=== PATIENT | male | born 1965 | race Caucasian/White ===

== ENCOUNTER 2017-10-13 00:36 | Emergency (ER) | payer MEDICAID, OTHER ==
--- NOTE | 2017-10-13 00:42 | ED Physician Documentation ---
PD HPI OPHTHO - Stated complaint Stated Complaint: LT EYE PAIN - History obtained from History obtained from: Patient - History of Present Illness Timing - onset: How many days ago (2) Timing - details: Gradual onset, Still present Location: Left Quality / character: Throbbing Associated symptoms: Redness, FB sensation Contributing factors: FB. No: Wears glasses, Wears contacts Similar symptoms before: Has not had sx before Recently seen: Not recently seen - Additional information Additional information: Patient is a 52 year old male with no significant past medical history who is presenting to the emergency department for left eye pain and foreign body sensation. Patient states that he was working on his car the day before and this morning he woke up with pain in his eye. he tried to get the foreign body out with a q-tip but he and a friend were both unsuccessful. Review of Systems Constitutional: denies: Fever, Chills Eyes: reports: Photophobia, Discharge, Irritation Ears: reports: Reviewed and negative Nose: reports: Reviewed and negative Throat: reports: Reviewed and negative Cardiac: reports: Reviewed and negative Respiratory: reports: Reviewed and negative GI: reports: Reviewed and negative : reports: Reviewed and negative Skin: reports: Reviewed and negative Musculoskeletal: reports: Reviewed and negative Neurologic: denies: Headache Psychiatric: reports: Reviewed and negative PD PAST MEDICAL HISTORY - Allergies Allergies/Adverse Reactions: Allergies Allergy/AdvReac Type Severity Reaction Status Date / Time No Known Drug Allergies Allergy Verified 10/13/17 00:49 PD ED PE NORMAL - Vitals Vital signs reviewed: Yes - General General: Alert and oriented X 3 - HEENT HEENT: Atraumatic - Cardiac Cardiac: RRR - Respiratory Respiratory: No respiratory distress - Abdomen Abdomen: Non distended - Derm Derm: Normal color, No rash - Extremities Extremities: No deformity - Neuro Neuro: Alert and oriented X 3, No motor deficit, No sensory deficit, Normal speech Eye Opening: Spontaneous Motor: Obeys Commands Verbal: Oriented GCS Score: 15 PD ED PE EXPANDED - General General: Alert, In Pain - Eyes Eyes: Visual acuity - see nn, Corneal FB (with rust ring at approximately 12 oclock), Corneal abrasion, Fluorescein uptake Results - Vitals Vitals: Vital Signs - 24 hr 10/13/17 10/13/17 10/13/17 00:46 01:01 01:36 Temperature 36.5 C 36.4 C L Heart Rate 103 H 92 Respiratory 18 17 12 Rate Blood Pressure 164/94 H 132/94 H O2 Saturation 98 97 10/13/17 01:40 Temperature Heart Rate Respiratory 17 Rate Blood Pressure O2 Saturation Oxygen O2 Source Room air Procedures - FB removal FB location: Other (eye) FB removal preparation: Local anesthesia-specify (proparacaine) Removal method: Other (27 g needle) FB removal aftercare: Patient tolerated well, Partially removed PD MEDICAL DECISION MAKING - ED course Complexity details: reviewed old records, re-evaluated patient, considered differential, d/w patient ED course: Patient was seen and examined at bedside. Patient was treated with proparacaine. Patient's fb was partially removed but there was some remnant rust ring. Patient was treated with polytrim drops and instructed on the importance of close follow up. Patient understood and was stable for discharge with outpatient follow up. Departure - Departure Disposition: 01 Home, Self Care Clinical Impression: Corneal rust ring of left eye Condition: Good Instructions: ED Foreign Body Cornea W Rust Ring Follow-Up: Dmitriy Mae MD [Primary Care Provider] - Comments: Your symptoms are being caused by a rust ring and foreign body. You will need to take the eye drops every 6 hours. It is important that you follow up with an eye doctor in the next two days as you will need the rest of the rust ring removed as it can lead to residential damage and scarring. Discharge Date/Time: 10/13/17 01:41
[2017-10-13] MEDS ORDERED: PROPARACAINE 0.5% OPHTH DROPS 15 ML EACHEYE STA (00:46)
[2017-10-13] MEDS ORDERED: POLYMYXIN B/TRIMETH OPHTH DROPS LEFTEYE STA (01:24)
[2017-10-13 01:37] VITALS: BP 132/94
== END 2017-10-13 01:41 | disposition home or self-care (01) ==
LOC: ED 00:36
DX: T15.02XA Foreign body in cornea, left eye, initial encounter (principal); X58.XXXA Exposure to other specified factors, initial encounter
CPT/HCPCS: 65220; 99282; 99283; A9270; J3490

== ENCOUNTER 2022-08-24 23:14 | Emergency (ER) | payer MEDICAID, OTHER ==
[2022-08-24 23:25] VITALS: BP 146/96
--- NOTE | 2022-08-24 23:30 | ED Physician Documentation ---
PD HPI HEENT - Stated complaint Stated Complaint: ABSCESS TOOTH - Chief complaint Chief Complaint: Wound - History obtained from History obtained from: Patient - History of Present Illness Timing - onset: How many days ago (Several days of increasing pain in the left upper tooth and gum and now redness and swelling in the left cheek and face. No pain in the orbital area.) Timing - duration: Days Timing - details: Gradual onset, Still present Location: Tooth (with extension to left cheek with redness and swelling.) Improves: No: Medication (iburpfoen at home) Associated symptoms: No: Fever, Congestion Similar symptoms before: Diagnosis (Poor dentition with prior dental infections. He has not been able to get to a dentist because of cost and he does not have dental insurance. Asks for referral to dental providers such as the [facility] dental clinic.) Review of Systems Constitutional: denies: Fever, Chills Eyes: denies: Photophobia Throat: reports: Dental pain / toothache. denies: Sore throat GI: denies: Nausea, Vomiting Neurologic: denies: Altered mental status, Headache PD PAST MEDICAL HISTORY - Past Medical History Cardiovascular: None Respiratory: None Endocrine/Autoimmune: None GI: None : None HEENT: None Psych: None Musculoskeletal: None Derm: None - Past Surgical History Past Surgical History: Yes General: Other Ortho: Other - Present Medications Home Medications: Ambulatory Orders Medication Instructions Recorded Confirmed HYDROcod/ACETAM 5/325 [Ayden 5/325] 1 ea PO Q6H PRN #18 tablet 08/24/22 Ibuprofen [Motrin] 600 mg PO TID PRN #20 tab 08/24/22 clindamycin HCL [Clindamycin HCl] 300 mg PO TID 7 Days #20 cap 08/24/22 - Allergies Allergies/Adverse Reactions: Allergies Allergy/AdvReac Type Severity Reaction Status Date / Time No Known Drug Allergies Allergy Verified 08/24/22 23:25 - Social History Does the pt smoke?: No Smoking Status: Never smoker Does the pt drink ETOH?: Yes Does the pt have substance abuse?: No - Immunizations Immunizations are current?: Yes - POLST Patient has POLST: No PD ED PE NORMAL - Vitals Vital signs reviewed: Yes - General General: Alert and oriented X 3, Well developed/nourished - HEENT HEENT: Pharynx benign (no swelling posteriorly. ). No: Dentition benign (Significant diffuse decay of teeth. The left upper premolar tooth 13 or 12 shows local gingival redness and swelling without fluctuance. The corresponding buccal mucosa shows some redness and swelling but no fluctuance. No tenderness or swelling of the parotid gland.) - Neck Neck: Supple, no meningeal sign, No adenopathy - Cardiac Cardiac: RRR, No murmur - Respiratory Respiratory: Clear bilaterally - Derm Derm: Other (The left cheek shows redness warmth and swelling without focal fl uctuance. It does not extend to the periorbital area.) Results - Vitals Vitals: Vital Signs - 24 hr 08/24/22 23:20 Temperature 36.2 C L Heart Rate 92 Respiratory 19 Rate Blood Pressure 146/96 H O2 Saturation 97 Oxygen O2 Source Room air PD Medical Decision Making - ED course Complexity details: considered differential (Dental infection with extension to the facial cellulitis. No drainable abscess palpable. Will treat with antibiotics and pain medicine.), d/w patient Departure - Departure Disposition: 01 Home, Self Care Clinical Impression: Dental abscess, Facial cellulitis Condition: Stable Record reviewed to determine appropriate education?: Yes Instructions: ED Dental Abscess Facial Cellulitis Follow-Up: Dmitriy Mae MD [Primary Care Provider] - Andres Banda DDS [Provider Admit Priv/Credential] - SENAIT AMADOR [Physician No Access] - Prescriptions: clindamycin HCL [Clindamycin HCl] 300 mg PO TID 7 Days #20 cap Ibuprofen [Motrin] 600 mg PO TID PRN #20 tab PRN Reason: Pain HYDROcod/ACETAM 5/325 [Ayden 5/325] 1 ea PO Q6H PRN #18 tablet PRN Reason: Pain Comments: Take clindamycin 3 times daily for the infection. Warm moist towels to the area to help improve blood flow and fight off the infection. Continue with some ibuprofen 600 mg 3 times daily to help with pain and inflammation as well. I sent prescriptions to [facility] pharmacy. To that add Tylenol every 4-6 hours if needed for pain or hydrocodone/acetaminophen if needed for worse pain. Follow-up with dental clinic or oral surgeon for more definitive care of the teeth at available appointment times. These places typically have a long waiting list. Possibilities are [facility] in [place], , or the dental clinic at [phone] to make an appointment (I clicked on the name of one of the dentists just to provide the phone number but I would not expect you to get an appointment with that particular provider.). I also did listed the name of one of the oral surgeons in [place]. It is probably unlikely he takes your insurance but you could give a call to see. This is Dr. Andres Banda. I am prescribing a short course of narcotic pain medication for you. These are potentially dangerous and addictive medications that should be used carefully. These medications may constipate you. Take an shpa-adg-ddaimsm stool softener such as docusate twice daily with plenty of water while taking these medications. If you go 24 hours without a bowel movement, take [id number]-[id number] MiraLAX, per package instructions. Do not drink or drive while taking these medications. If you received narcotic or sedating medications while in the emergency department do not drive for 24 hours. Store this medication in a safe, secure place and out of reach of children. It is a violation of federal law to give or sell this medication to another person or to use in a manner other than prescribed. The ED will not refill narcotic prescriptions, including prescriptions lost or stolen. You can dispose of unwanted medications at the [facility]'s office or at several pharmacies such as [facility]. Discharge Date/Time: 08/25/22 00:01
[2022-08-24] MEDS ORDERED: HYDROcod/ACETAM 5/325 MG TABLET PO STA (23:40)
[2022-08-24] MEDS ORDERED: ACETAMINOPHEN 325 MG TABLET PO STA (23:40)
[2022-08-24] MEDS ORDERED: HYDROcod/ACET 5/325 Prepack 4 PO STA (23:40)
[2022-08-24] MEDS ORDERED: CLINDAMYCIN 150 MG CAPSULE PO STA (23:40)
--- NOTE | 2022-08-25 14:25 | ED Physician Documentation ---
ED Addendum - Addendum Addendum: 08/25/22 14:25 The health dip unit operator asked me to change his prescriptions from [facility] to [email or web address].
== END 2022-08-25 00:01 | disposition home or self-care (01) ==
LOC: ED 23:14
DX: K04.7 Periapical abscess without sinus (principal); K12.2 Cellulitis and abscess of mouth
CPT/HCPCS: 99282; 99283; A9270

== ENCOUNTER 2022-11-30 19:54 | Emergency (ER) | payer MEDICAID ==
[2022-11-30] MEDS ORDERED: NAPROXEN 250 MG TABLET PO STA (20:25)
[2022-11-30] MEDS ORDERED: HYDROcod/ACETAM 5/325 MG TABLET PO STA (20:25)
--- NOTE | 2022-11-30 20:27 | ED Physician Documentation ---
PD HPI LOWER EXT INJURY - Stated complaint Stated Complaint: RT KNEE INJ - Chief complaint Chief Complaint: Ext Problem - History obtained from History obtained from: Patient - Additional information Additional information: 6 months ago he was walking in a field and stepped in impression and injured his right knee. He felt a pop. Says he was seen at [facility] with reportedly negative x-rays. He has had on and off pain ever since which was severe and blinding last night while kneeling on the ground and he could not sleep. Pain is of the medial anterior right knee. Hurts to walk and bear weight. Ibuprofen is modestly helpful. PD PAST MEDICAL HISTORY - Past Medical History Past Medical History: Yes Cardiovascular: None Respiratory: None Neuro: None Endocrine/Autoimmune: None GI: None : None HEENT: None Psych: None Musculoskeletal: None Derm: None - Past Surgical History Past Surgical History: Yes General: Other Ortho: Other - Present Medications Home Medications: Ambulatory Orders Medication Instructions Recorded Confirmed HYDROcod/ACETAM 5/325 [[place] 5/325] 1 - 2 tab PO Q6H PRN #15 tablet 11/30/22 - Allergies Allergies/Adverse Reactions: Allergies Allergy/AdvReac Type Severity Reaction Status Date / Time No Known Drug Allergies Allergy Verified 11/30/22 20:12 - Social History Does the pt smoke?: No Smoking Status: Never smoker Does the pt drink ETOH?: Yes Does the pt have substance abuse?: No - Immunizations Immunizations are current?: Yes - POLST Patient has POLST: No PD ED PE NORMAL - Vitals Vital signs reviewed: Yes - General General: Alert and oriented X 3, No acute distress - Extremities Extremities: Other (Moderate effusion of the right knee, tenderness along the medial joint line with pain with grind testing but ligamentous testing is intact.) - Neuro Neuro: Alert and oriented X 3, Normal speech - Psych Psych: Normal mood, Normal affect Results - Vitals Vitals: Vital Signs - 24 hr 11/30/22 20:04 Temperature 36.6 C Heart Rate 93 Respiratory 17 Rate Blood Pressure 126/88 H O2 Saturation 98 Oxygen O2 Source Room air - Rads (name of study) Three-view x-ray of the right knee is done and unremarkable. Relevant Findings:: Final report received, EMP independent interpretation of test PD Medical Decision Making - ED course ED course: 57-year-old gentleman with likely internal derangement of the right knee with effusion on exam. Likely meniscal injury based on exam. He is placed in knee immobilizer and orthopedic follow-up was recommended. Departure - Departure Disposition: 01 Home, Self Care Clinical Impression: Internal derangement of right knee Condition: Stable Record reviewed to determine appropriate education?: Yes Instructions: ED Meniscal Injury Knee Poss Follow-Up: [facility] [Provider Group] Prescriptions: HYDROcod/ACETAM 5/325 [[place] 5/325] 1 - 2 tab PO Q6H PRN #15 tablet PRN Reason: Pain Comments: I sent your prescription electronically to the [facility] [place]. You should follow-up with the orthopedist, call their office tomorrow for further evaluation and treatment. Return for new or worsening symptoms. I am prescribing a short course of narcotic pain medication for you. These are potentially dangerous and addictive medications that should be used carefully. These medications may constipate you. Take an wxye-upg-sbphlum stool softener (docusate) twice daily with plenty of water while taking these medications. If you go 24 hours without a bowel movement, take uphb-yzr-[id number] miralax, per package instructions. Do not drink or drive while taking these medications. If you received narcotic or sedating medications while in the emergency department, do not drive for 24 hours. Store this medication in a safe, secure place and out of reach of children. It is a violation of federal law to give or sell this medication to another person or to use in a manner other than prescribed. The ED will not refill narcotic prescriptions, including prescriptions lost or stolen. To dispose of unwanted medications: 1. [facility] at [address] in [place] has a medication drop box. They accept prescription medications (in pill form) Sunday through Sunday 9:00 a.m. to 5:00 p.m. 2. The [facility] [employer] accepts prescription medications (in pill form only) for disposal year round. Call for more information. 3. Contact the [facility] for the next [facility] sponsored prescription drug collection event. , [phone], or [phone]; Note that many narcotic pain relievers also contain Tylenol/acetaminophen. Please ensure that your total dose of acetaminophen from all sources does not exceed 3 g (3000 mg) per day.
--- NOTE | 2022-11-30 20:54 | XRAY Report ---
PROCEDURE: Knee 3 View RT INDICATIONS: PAIN/TENDERNESS/SWELLING R KNEE TECHNIQUE: 3 views of the right knee(s) were acquired. COMPARISON: None. FINDINGS: Bones: No displaced fracture or dislocation. Soft tissues: No suspicious soft tissue calcifications. No significant effusion. There are vascular c alcifications. IMPRESSION: No acute radiographic abnormality. If there is high concern for further derangement, consider MRI carlos luation. Reviewed by: Pierre Upton MD on 11/30/2022 8:53 PM PDT Approved by: Pierre Upton MD on 11/30/2022 8:53 PM PDT Station ID: [id number]
[2022-11-30 21:50] VITALS: BP 136/85
== END 2022-11-30 21:50 | disposition home or self-care (01) ==
LOC: ED 19:54
DX: M23.91 Unspecified internal derangement of right knee (principal)
CPT/HCPCS: 73562; 99283; 99284; A9270

== ENCOUNTER 2022-12-26 17:13 | Outpatient (CLI) | payer MEDICAID ==
--- NOTE | 2022-12-26 19:53 | XRAY Report ---
PROCEDURE: Knee 3 View RT INDICATIONS: RIGHT KNEE PAIN TECHNIQUE: 3 views of the right knee(s) were acquired. COMPARISON: None. FINDINGS: Bones: No fractures or dislocations. No suspicious bony lesions. Soft tissues: Small knee joint effusion. No suspicious soft tissue calcifications or masses. IMPRESSION: No significant DJD. If clinically indicated MRI could be considered for further evaluation. Reviewed by: Raj Sena MD on 12/26/2022 7:51 PM PDT Approved by: Raj Sena MD on 12/26/2022 7:51 PM PDT Station ID: [id number]
== END 2022-12-26 17:14 | disposition home or self-care (01) ==
LOC: DI.WOS 17:13
PROVIDERS: ATTEND Physician Assistant Surgical
DX: M25.561 Pain in right knee (principal)

== ENCOUNTER 2023-07-22 23:24 | Emergency (ER) | payer MEDICAID ==
[2023-07-22] MEDS ORDERED: ONDANSETRON 4 MG/2 ML VIAL IVP STA (23:39)
[2023-07-22] MEDS ORDERED: MORPHINE 2 MG/ML CARPUJECT IVP STA (23:39)
--- NOTE | 2023-07-22 23:41 | ED Physician Documentation ---
PD HPI MAJOR TRAUMA - Stated complaint Stated Complaint: FELL/L RIB PX - Chief complaint Chief Complaint: Trauma Ch/Bk - History obtained from History obtained from: Patient - Additional information Additional information: 58-year-old male with no reported past medical history presents by private vehicle for left chest and abdominal pain that began after a fall just prior to arrival. Patient was working 10 feet up on some pallets when he slipped and fell, landing on his left side. He does deny hitting his head or loss of consciousness, denies use of blood thinners. He reports left chest wall and left abdominal pain that is making it difficult for him to breathe. He reports "dislodging his liver" in the past and he is concerned that his liver may be involved Review of Systems Constitutional: denies: Fever, Chills Ears: denies: Loss of hearing, Ear pain, Drainage/discharge Cardiac: reports: Chest pain / pressure. denies: Palpitations, Calf pain Respiratory: reports: Dyspnea. denies: Cough, Wheezing GI: reports: Abdominal Pain. denies: Nausea, Vomiting, Constipation, Diarrhea : denies: Dysuria, Frequency, Hesitancy Musculoskeletal: denies: Neck pain, Back pain Neurologic: denies: Generalized weakness, Focal weakness, Numbness, Syncope PD PAST MEDICAL HISTORY - Past Medical History Past Medical History: No Cardiovascular: None Respiratory: None Neuro: None Endocrine/Autoimmune: None GI: None : None HEENT: None Psych: None Musculoskeletal: None Derm: None - Past Surgical History Past Surgical History: Yes General: Other Ortho: Other - Present Medications Home Medications: Ambulatory Orders Medication Instructions Recorded Confirmed Oxycodone HCl/Acetaminophen 1 each PO Q6H PRN #15 tablet 07/23/23 [Percocet 5-325 mg Tablet] methocarbamoL [Robaxin] 500 mg PO Q6H #30 tablet 07/23/23 - Allergies Allergies/Adverse Reactions: Allergies Allergy/AdvReac Type Severity Reaction Status Date / Time Sulfa (Sulfonamide AdvReac Unknown Verified 07/22/23 23:34 Antibiotics) - Social History Does the pt smoke?: No Smoking Status: Never smoker Does the pt drink ETOH?: Yes Does the pt have substance abuse?: No - Immunizations Immunizations are current?: Yes - POLST Patient has POLST: No PD ED PE NORMAL - Vitals Vital signs reviewed: Yes - General General: Alert and oriented X 3, Other (in pain) - HEENT HEENT: Atraumatic - Neck Neck: Supple, no meningeal sign - Cardiac Cardiac: RRR, Strong equal pulses - Respiratory Respiratory: No respiratory distress - Abdomen Abdomen: Soft, Other (LUQ/L flank tenderness to palpation) - Derm Derm: Normal color, Warm and dry, Other (superficial abrasion L back) - Extremities Extremities: No deformity, No tenderness to palpate, Normal ROM s pain, No edema - Neuro Neuro: Alert and oriented X 3, target setter 2-12 intact, No motor deficit, Normal speech Results - Vitals Vitals: Vital Signs - 24 hr 07/22/23 07/23/23 07/23/23 23:30 00:00 00:40 Temperature 36.2 C L Heart Rate 85 87 86 Respiratory 17 16 21 Rate Blood Pressure 142/90 H 127/86 H 124/83 H O2 Saturation 98 96 98 If not protocol 2 : Oxygen Flow, liters/minute 07/23/23 07/23/23 07/23/23 01:22 01:30 01:55 Temperature Heart Rate 87 88 88 Respiratory 24 19 21 Rate Blood Pressure 124/84 H 130/92 H O2 Saturation 100 94 93 If not protocol 2 2 : Oxygen Flow, liters/minute Oxygen O2 Source Room air - Labs Labs: Laboratory Tests 07/22/23 07/22/23 07/22/23 23:47 23:47 23:47 WBC 7.8 RBC 4.68 L Hgb 14.5 Hct 43.0 MCV 91.9 MCH 31.0 MCHC 33.7 RDW 12.9 Plt Count 321 MPV 8.5 Neut # (Auto) 3.9 Lymph # (Auto) 2.7 Meagher # (Auto) 0.8 Eos # (Auto) 0.3 Baso # (Auto) 0.1 Absolute Nucleated RBC 0.00 Nucleated RBC % 0.0 PT 11.4 INR 1.1 Sodium 139 Potassium 3.6 Chloride 104 Carbon Dioxide 29 Anion Gap 6.0 BUN 21 H Creatinine 1.5 H Estimated GFR (MDRD) 48 L Glucose 130 H Lactic Acid Calcium 9.3 Total Bilirubin 0.3 AST 17 ALT 15 Alkaline Phosphatase 77 Total Creatine Kinase 192 Total Protein 7.3 Albumin 4.3 Globulin 3.0 Albumin/Globulin Ratio 1.4 Ethyl Alcohol < 10.0 Blood Type Antibody Screen 07/22/23 07/22/23 23:47 23:47 WBC RBC Hgb Hct MCV MCH MCHC RDW Plt Count MPV Neut # (Auto) Lymph # (Auto) Meagher # (Auto) Eos # (Auto) Baso # (Auto) Absolute Nucleated RBC Nucleated RBC % PT INR Sodium Potassium Chloride Carbon Dioxide Anion Gap BUN Creatinine Estimated GFR (MDRD) Glucose Lactic Acid 1.2 Calcium Total Bilirubin AST ALT Alkaline Phosphatase Total Creatine Kinase Total Protein Albumin Globulin Albumin/Globulin Ratio Ethyl Alcohol Blood Type O POSITIVE Antibody Screen NEGATIVE PD Medical Decision Making - ED course Complexity details: reviewed results, re-evaluated patient, considered differential, d/w patient ED course: Uncomfortable but nontoxic patient presenting for left-sided pain after falling 10 feet and landing onto hard object. Based on nature and location of patient's pain plan to order CT of the chest abdomen and pelvis. Due to distracting in jury and height of fall will also order noncontrast CT of the head and brain. Laboratory work ordered, IV medications for pain administered. Laboratory work is reviewed, mild elevation in creatinine with GFR 45. CT of the chest abdomen pelvis show an acute fracture of left 10th rib fracture. There is also noted to be an age-indeterminate right L1 transverse process fracture. Patient reassessed, resting in bed, pain controlled with IV medications. He was informed of his CT results. He denies any pain on the right-hand side of his body or pain in his back, this is likely a chronic fractu re. Patient advised of the left-sided rib fracture. He was given an incentive spirometer and instructed on the importance of taking deep breaths to avoid atelectasis and pneumonia.Prescribed pain medications and muscle relaxers. He was advised of his slightly elevated creatinine and to avoid renal toxic medications such as aspirin and anti-inflammatories. He states that he will follow-up with her primary care physician for his kidney function. Departure - Departure Disposition: 01 Home, Self Care Clinical Impression: Fracture of rib Qualifiers: Encounter type: initial encounter Rib fracture type: single rib Fracture type: closed Laterality: left Qualified Code(s): S22.32XA - Fracture of one rib, left side, initial encounter for closed fracture Fall Qualifiers: Encounter type: initial encounter Qualified Code(s): W19.XXXA - Unspecified fall, initial encounter Condition: Stable Instructions: ED Fx Rib Prescriptions: Oxycodone HCl/Acetaminophen [Percocet 5-325 mg Tablet] 1 each PO Q6H PRN #15 tablet PRN Reason: Pain 5-7 methocarbamoL [Robaxin] 500 mg PO Q6H #30 tablet Comments: You are seen today for pain after falling off of pallets. You have left 10th rib fracture, but thankfully no other injuries were seen today. He did have mild decrease in your kidney function. I would follow-up with your primary care physician about this matter, and make sure you stay well-hydrated with plenty of fluids. I also recommend avoiding aspirin and ibuprofen and the meantime. Please make sure you take deep breaths because this will avoid leading to pneumonia. Forms: PCP List Discharge Date/Time: 07/23/23 02:10
[2023-07-22 23:59] LABS: BASOPHILS # (AUTO) 0.1 10^3/uL (0.0-0.1); BASOPHILS % (AUTO) 0.9 %; EOSINOPHILS # (AUTO) 0.3 10^3/uL (0.0-0.7); EOSINOPHILS % (AUTO) 3.7 %; HGB - HEMOGLOBIN 14.5 g/dL (14.0-18.0); LYMPHOCYTES # (AUTO) 2.7 10^3/uL (1.5-3.5); MEAN CORPUSCULAR HGB CONC 33.7 g/dL (32.0-36.0); MEAN CORPUSCULAR VOLUME 91.9 fL (80.0-94.0); MEAN PLATELET VOLUME 8.5 fL (7.4-11.4); MONOCYTES # (AUTO) 0.8 10^3/uL (0.0-1.0); MONOCYTES % (AUTO) 10.4 %; NEUTROPHILS # (AUTO) 3.9 10^3/uL (1.5-6.6); NEUTROPHILS % (AUTO) 50.5 %; PLT - PLATELET COUNT 321 10^3/uL (130-450); RED BLOOD COUNT 4.68 10^6/uL (4.70-6.10); RED CELL DISTRIBUTION WIDTH 12.9 % (12.0-15.0); WHITE BLOOD COUNT 7.8 x10^3/uL (4.8-10.8)
[2023-07-23 00:08] LABS: ALBUMIN 4.3 g/dL (3.2-5.5); ALBUMIN/GLOBULIN RATIO 1.4 (1.0-2.2); ALKALINE PHOSPHATASE 77 IU/L (42-121); ALT ALANINE AMINOTRANSFERASE 15 IU/L (10-60); AST ASPARTATE AMINOTRANSFERASE 17 IU/L (10-42); BILIRUBIN,TOTAL 0.3 mg/dL (0.2-1.0); BUN - BLOOD UREA NITROGEN 21 mg/dL (6-20); CALCIUM 9.3 mg/dL (8.5-10.3); CARBON DIOXIDE - CO2 29 mmol/L (21-32); CHLORIDE 104 mmol/L (101-111); CK- CREATINE KINASE 192 IU/L (30-223); CREATININE 1.5 mg/dL (0.6-1.3); ETOH - ETHANOL < 10.0 mg/dL; GFR - MDRD 48 (>89); GLUCOSE 130 mg/dL (74-104); POTASSIUM 3.6 mmol/L (3.5-4.5); SODIUM 139 mmol/L (135-145); TOTAL PROTEIN 7.3 g/dL (6.4-8.9)
[2023-07-23] MEDS ORDERED: SODIUM CHLORIDE 0.9% 1,000 ML IV STA (00:25)
[2023-07-23 00:26] LABS: INR 1.1 (0.8-1.2); PT - PROTHROMBIN TIME 11.4 secs (9.9-12.6)
[2023-07-23] MEDS ORDERED: iohexoL-300 100 ML VIAL IVP ONE (01:01)
[2023-07-23] MEDS ORDERED: TETANUS/DIPHTHERIA/PERTUSSIS 0.5 ML SYRINGE IM ONE (01:06)
--- NOTE | 2023-07-23 01:06 | CT Report ---
PROCEDURE: CERVICAL SPINE WO INDICATIONS: FALL 10 FT FROM PALLETS/TRAUMA TECHNIQUE: Noncontrast 3 mm thick sections acquired from the skull base to the T4 level. Sagittal and coronal r eformats were then constructed. For radiation dose reduction, the following was used: automated exp osure control, adjustment of mA and/or kV according to patient size. COMPARISON: None. FINDINGS: Image quality: Excellent. Bones: No acute fractures or dislocations. No acute compression fractures of the vertebral bodies. Craniocervical junction is intact. C1-C2 relationship is preserved. Visualized superior ribs are inta ct. Multilevel lumbar spondylosis. Soft tissues: Prevertebral soft tissues are normal in thickness. No paravertebral hematomas. No ap ical pneumothoraces. IMPRESSION: No acute, displaced fracture or traumatic subluxation. Multilevel cervical spondylosis. Reviewed by: Luis M Bruce MD on 07/23/2023 1:04 AM PST Approved by: Luis M Bruce MD on 07/23/2023 1:04 AM PST Station ID: [id number]
--- NOTE | 2023-07-23 01:08 | CT Report ---
PROCEDURE: HEAD WO INDICATIONS: FALL 10 FT FROM PALLETS, TRAUMA TECHNIQUE: Noncontrast 4.5 mm thick angled axial sections acquired from the foramen magnum to the vertex. For r adiation dose reduction, the following was used: automated exposure control, adjustment of mA and/or kV according to patient size. COMPARISON: None. FINDINGS: Image quality: Excellent. CSF spaces: Basal cisterns are patent. No extra-axial fluid collections. Ventricles are normal in size and shape. Brain: No midline shift. No intracranial masses or hemorrhage. No mass effect. Banerjee-white matter i nterface is normal. There cerebral volume loss for age with resultant ventricular and sulcal prominen ce. There are periventricular and deep white matter chronic small vessel ischemic changes. Atheroscle rotic calcifications are noted in the intracranial segments of the bilateral internal carotid arterie s. Skull and face: Calvarium and visualized facial bones are intact, without suspicious lesions. Sinuses: Visualized sinuses and mastoids are clear. IMPRESSION: No acute intracranial pathology. No acute calvarial fractures. Age-related senescent changes and sequela of chronic small vessel ischemic disease. Reviewed by: Luis M Bruce MD on 07/23/2023 1:07 AM PST Approved by: Luis M rBuce MD on 07/23/2023 1:07 AM PST Station ID: [id number]
--- NOTE | 2023-07-23 01:15 | CT Report ---
PROCEDURE: CHEST W INDICATIONS: FALL 10FT FROM PALLETS, L CHEST/ABD PAIN CONTRAST: 100 ML OMNI 300 TECHNIQUE: After the administration of intravenous contrast, 1 mm axial images were acquired from the pulmonary apices through the posterior costophrenic angles. Axial 5 mm soft tissue kernel reconstructions were performed as well as 8 mm axial MIP and coronal and sagittal 5 mm reformations. For radiation dose reduction, the following was used: automated exposure control, adjustment of mA and/or kV according to patient size. COMPARISON: None FINDINGS: Image quality: Excellent. Lungs and pleura: Bibasilar atelectasis more pronounced on the left. No pleural effusions. No pneumo thorax. No suspicious pulmonary nodules which require follow up. Mediastinum: Heart size is normal. No pericardial effusion. Atherosclerosis of the coronary arteries. No large vessel abnormality. No mediastinal adenopathy by size criteria. Chest wall and lower neck: Thyroid is unremarkable. No axillary or supraclavicular adenopathy by size . Bones: No aggressive osseous abnormality. Acute, displaced posterior left 10th rib fracture. Upper Abdomen: Unremarkable. IMPRESSION: Acute, displaced posterior left 10th rib fracture. No evidence for adjacent pulmonary contusion. No p neumothorax. Moderate bibasilar atelectasis. Atherosclerotic vascular calcifications. No evidence for acute traumatic injury to the mediastinal great vessels. Reviewed by: Luis M Bruce MD on 07/23/2023 1:14 AM PST Approved by: Luis M Bruce MD on 07/23/2023 1:14 AM PST Station ID: [id number]
--- NOTE | 2023-07-23 01:21 | CT Report ---
PROCEDURE: ABDOMEN/PELVIS W INDICATIONS: FALL 10FT FROM PALLET, L CHEST/ABD PAIN CONTRAST: 100 ML OMNI 300 TECHNIQUE: After the administration of intravenous contrast, 5 mm thick sections acquired from the diaphragms to the symphysis. 5 mm thick coronal and sagittal reformats were acquired. For radiation dose reducti on, the following was used: automated exposure control, adjustment of mA and/or kV according to gretchen ent size. COMPARISON: None FINDINGS: Image quality: Diagnostic. Lung bases and heart: Moderate bibasilar atelectasis. Liver: No solid mass. No evidence for acute traumatic injury. Gallbladder and biliary tree: No radiopaque stones or wall thickening. No biliary dilation. Spleen: No splenomegaly. No evidence for traumatic splenic injury. Pancreas: No pancreatic ductal dilation. No evidence for traumatic injury. Adrenals: No adrenal nodule. Kidneys and ureters: No hydronephrosis. No renal cystic lesion which requires follow up. No solid mas s. No evidence for acute traumatic injuries to the kidneys. Bowel and peritoneum: No bowel distension. No pathologic free fluid. Extensive colonic diverticulosis without evidence for acute diverticulitis. Normal appendix. Lymph nodes: No central or retroperitoneal adenopathy. Vessels: No infrarenal aortic aneurysm. Moderate atherosclerotic vascular calcifications of the abdom inal aorta and iliac vessels. PELVIS Reproductive organs: Unremarkable. Bladder: No abnormal wall thickening, accounting for underdistension. Pelvic lymph nodes: No pelvic adenopathy by size criteria. Bones: No aggressive osseous abnormality. Acute, displaced posterior left 10th rib fracture. Age-inde terminate nondisplaced fracture of the right L1 transverse process fracture. Other: No significant ventral or inguinal hernia. IMPRESSION: 1. Acute, displaced posterior left 10th rib fracture without underlying traumatic injury to the adjac ent spleen. 2. Otherwise, no acute traumatic abnormalities identified in the abdomen or pelvis. 3. Age-indeterminate nondisplaced right L1 transverse process fracture. 4. Moderate atherosclerotic vascular calcifications. 5. Colonic diverticulosis without acute diverticulitis. 6. Normal appendix. Reviewed by: Luis M Bruce MD on 07/23/2023 1:19 AM [facility] Approved by: Luis M Bruce MD on 07/23/2023 1:19 AM PST Station ID: [id number]
[2023-07-23] MEDS ORDERED: oxyCODONE/ACET 5/325 Prepack 4 PO STA (01:31)
[2023-07-23 01:41] VITALS: BP 130/92
[2023-07-23 02:17] VITALS: O2SAT 93
== END 2023-07-23 02:10 | disposition home or self-care (01) ==
LOC: ED 23:24
DX: S22.32XA Fracture of one rib, left side, initial encounter for closed fracture (principal); W17.89XA Other fall from one level to another, initial encounter; Z23 Encounter for immunization
CPT/HCPCS: 36415; 70450; 71260; 72125; 74177; 80053; 80320; 82550; 83605; 85025; 85610; 86850; 86900; 86901; 90471; 90715; 93005; 96374; 96375; 99284; Q9967

== ENCOUNTER 2023-10-27 01:02 | Emergency (ER) | payer MEDICAID ==
[2023-10-27 01:25] VITALS: BP 106/74; O2SAT 96
[2023-10-27 03:42] LABS: B. PARAPERTUSSIS- RESP PCR PAN NOT DETECTED; B. PERTUSSIS- RESP PCR PANEL NOT DETECTED; C. PNEUMONIAE- RESP PCR PANEL NOT DETECTED; CORONAVIRUS 229E-RESP PCR NOT DETECTED; CORONAVIRUS HKU1-RESP PCR NOT DETECTED; CORONAVIRUS NL63-RESP PCR NOT DETECTED; CORONAVIRUS OC43-RESP PCR NOT DETECTED; HUMAN METAPNEUMOVIRUS NOT DETECTED; INFLUENZA A- RESP PCR PANEL NOT DETECTED; INFLUENZA B - RESP PCR PANEL NOT DETECTED; M. PNEUMONIAE- RESP PCR PANEL NOT DETECTED; PARAINFLUENZA VIRUS 1 NOT DETECTED; PARAINFLUENZA VIRUS 2 NOT DETECTED; PARAINFLUENZA VIRUS 3 NOT DETECTED; PARAINFLUENZA VIRUS 4 NOT DETECTED; RHINOVIRUS/ENTEROVIRUS DETECTED; RSV- RESP PCR PANEL NOT DETECTED; SARS-CoV-2 -RESP PCR PANEL NOT DETECTED
--- NOTE | 2023-10-27 04:51 | ED Physician Documentation ---
PD HPI URI - Stated complaint Stated Complaint: BODY ACHES/SOA/CONGESTION - Chief complaint Chief Complaint: Resp - History obtained from History obtained from: Patient, Family ( Alejandra) - History of Present Illness Timing - onset: How many weeks ago (1) Timing duration: Weeks (1) Timing details: Gradual onset, Still present Associated symptoms: Fever, Chills, Sweats, Nasal congestion, Rhinorrhea, Sore throat, Swollen nodes, Productive cough Contributing factors: Sick contact ( sick with similar) Improves by: Rest, Medication Worsened by: Activity Similar symptoms before: Diagnosis (COVID) Recently seen: Not recently seen - Additional information Additional information: 58-year-old Eleno Marin developed upper respiratory symptoms 1 week ago and he has had persistence of his symptoms and now worsening. He continues to have fever and sweats and aches. He has previously had COVID he has been boosted and vaccinated and he tested for COVID this week and it was negative. He is coughing up thick yellow phlegm. He has had fever chills sweats cough nasal congestion sore throat. Review of Systems Constitutional: reports: Fever, Chills, Myalgias, Sweats Eyes: denies: Decreased vision Ears: denies: Ear pain Nose: reports: Rhinorrhea / runny nose, Congestion Throat: reports: Sore throat Cardiac: denies: Chest pain / pressure, Palpitations Respiratory: reports: Dyspnea, Cough GI: reports: Nausea. denies: Vomiting : denies: Dysuria, Frequency Skin: denies: Rash Musculoskeletal: denies: Neck pain, Back pain, Extremity pain PD PAST MEDICAL HISTORY - Past Medical History Cardiovascular: None Respiratory: None Neuro: None Endocrine/Autoimmune: None GI: None : None HEENT: None Psych: None Musculoskeletal: None Derm: None - Past Surgical History Past Surgical History: Yes General: Other Ortho: Other - Present Medications Home Medications: Ambulatory Orders Medication Instructions Recorded Confirmed Amox/Clav 875/125 [Augmentin] 1 each PO Q12H #20 tablet 10/27/23 Azithromycin [Zithromax] 250 mg PO DAILY #6 tablet 10/27/23 - Allergies Allergies/Adverse Reactions: Allergies Allergy/AdvReac Type Severity Reaction Status Date / Time Sulfa (Sulfonamide AdvReac Unknown Verified 10/27/23 01:16 Antibiotics) - Social History Does the pt smoke?: No Smoking Status: Never smoker Does the pt drink ETOH?: Yes Does the pt have substance abuse?: No Substance Use and Type: Marijuana - Immunizations Immunizations are current?: Yes - POLST Patient has POLST: No PD ED PE NORMAL - Vitals Vital signs reviewed: Yes (Tachycardic and tachypneic) - General General: Alert and oriented X 3, Well developed/nourished, Other (Diaphoretic 58-year-old male who moves slowly) - HEENT HEENT: Atraumatic, PERRL, EOMI, Pharynx benign, Other (Mild inflammation in the right TM) - Neck Neck: Supple, no meningeal sign, No bony TTP - Cardiac Cardiac: RRR, No murmur - Respiratory Respiratory: Other (Mild tachypnea with rhonchi in the left base.) - Abdomen Abdomen: Soft, Non tender - Back Back: No CVA TTP, No spinal TTP - Derm Derm: Normal color, Warm and dry, No rash - Extremities Extremities: No deformity, No edema - Neuro Neuro: Alert and oriented X 3, 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 parapertussis DNA (PCR) NOT DETECTED Nasal Coronavir 229E PCR NOT DETECTED Nasal Coronavir HKU1 PCR NOT DETECTED Nasal Coronavir NL63 PCR NOT DETECTED Nasal Coronavir OC43 PCR NOT DETECTED Nasal Enterovir/Rhinovir PCR DETECTED A Nasal Influenza B PCR NOT DETECTED Nasal Influenza A PCR NOT DETECTED Nasal Parainfluen 1 PCR NOT DETECTED Nasal Parainfluen 2 PCR NOT DETECTED Nasal Parainfluen 3 PCR NOT DETECTED Nasal Parainfluen 4 PCR NOT DETECTED Nasal RSV (PCR) NOT DETECTED Nasal B.pertussis DNA PCR NOT DETECTED Nasal C.pneumoniae (PCR) NOT DETECTED Everardo Human Metapneumo PCR NOT DETECTED Nasal M.pneumoniae (PCR) NOT DETECTED Nasal SARS-CoV-2 (PCR) NOT DETECTED - Rads (name of study) chest Relevant Findings:: Prelim report reviewed (Impression: Low inspiration with central vascular crowding and subsegmental atelectasis pleural/parenchymal disease left lower lobe probably pneumonic.), EMP independent interpretation of test PD Medical Decision Making - ED course Complexity details: reviewed old records, reviewed results, re-evaluated patient, considered differential, d/w patient, d/w family Reviewed Lab Results: We reviewed a nasal smear for virus which showed rhinovirus similar to what the patient's was diagnosed with. We obtained an x-ray of the patient's chest with findings of rhonchi in the left base and found an infiltrate. This infiltrate looks consistent with a bacterial pneumonia. ED course: 58-year-old Eleno Marin has developed rhinovirus and developed a complicating pneumonia. He is currently afebrile and has an oxygen saturation of 96%.He is treated here in the emergency department with a gram of Rocephin IM and we will place him on a course of Augmentin and azithromycin as an outpatient.He is also administered dose of dexamethasone. Departure - Departure Disposition: 01 Home, Self Care Clinical Impression: Rhinovirus Pneumonia Qualifiers: Pneumonia type: due to unspecified organism Laterality: left Lung location: lower lobe of lung Qualified Code(s): J18.9 - Pneumonia, unspecified organism Condition: Stable Instructions: Cold Virus, ED Pneumonia Adult Follow-Up: Raya Jha PA [Provider Admit Priv/Credential] - Prescriptions: Amox/Clav 875/125 [Augmentin] 1 each PO Q12H #20 tablet Azithromycin [Zithromax] 250 mg PO DAILY #6 tablet Comments: Eleno, today it looks like you have a left lower lobe pneumonia and we are treating this with 2 antibiotics. I have E scribed both azithromycin and Augmentin to the [facility] in [place]. Our expectations with treatment are slow and steady improvement over the next 2 to 5 days. If you develop worsening shortness of breath worsening chest pain or do not resolve your symptoms follow-up with your primary care doctor or here. Forms: PCP List, Activity restrictions Discharge Date/Time: 10/27/23 05:30
[2023-10-27] MEDS: LIDOCAINE 1% 2 ML VIAL MC ONE ×2 (05:20→05:25)
[2023-10-27] MEDS: CHERRY SYRUP 10 ML UDC PO ONE ×2 (05:20→05:25)
[2023-10-27] MEDS: DEXAMETHASONE 10 MG/ML VIAL PO STA ×2 (05:20→05:24)
[2023-10-27] MEDS: cefTRIAXone 1 GM VIAL IM STA ×2 (05:20→05:25)
--- NOTE | 2023-10-27 08:39 | XRAY Report ---
PROCEDURE: Chest 1V INDICATIONS: cough soa TECHNIQUE: One view of the chest was acquired. COMPARISON: CT chest dated 07/23/2023 FINDINGS: Surgical changes and devices: None. Lungs and pleura: Left basilar consolidation and atelectasis. Question associated small pleural effu jarrod. Mediastinum: Mediastinal contours appear normal. Heart size is normal. Bones and chest wall: No suspicious bony lesions. Overlying soft tissues appear unremarkable. IMPRESSION: Findings suggest left basilar pneumonia and atelectasis with possible associated pleural fluid. Findings are concordant with preliminary interpretation provided by [facility]. Reviewed by: Jesse Bull MD on 10/27/2023 8:37 AM PDT Approved by: Jesse Bull MD on 10/27/2023 8:37 AM PDT Station ID: [id number]
== END 2023-10-27 05:30 | disposition home or self-care (01) ==
LOC: ED 01:02
DX: B34.8 Other viral infections of unspecified site (principal); J18.9 Pneumonia, unspecified organism; Z11.52 Encounter for screening for COVID-19
CPT/HCPCS: 71045; 87633; 96372; 99284; A9270

== ENCOUNTER 2024-01-15 09:34 | Outpatient (CLI) | payer MEDICAID ==
--- NOTE | 2024-01-15 12:19 | XRAY Report ---
PROCEDURE: Knee 4+V RT INDICATIONS: RIGHT KNEE SPRAIN TECHNIQUE: 4 views of the knee(s) were acquired. COMPARISON: 12/26/2022 FINDINGS: Bones: No fractures or dislocations. Mild medial compartment joint space loss, similar compared to p rior. No suspicious bony lesions. Soft tissues: Small knee joint effusion. No suspicious soft tissue calcifications or masses. IMPRESSION: Mild, stable medial compartment joint space loss. Small joint effusion may indicate internal arrangement. Reviewed by: Syl De Los Santos MD on 01/15/2024 12:18 PM PDT Approved by: Syl De Los Santos MD on 01/15/2024 12:18 PM PDT Station ID: [id number]
== END 2024-01-15 09:35 | disposition home or self-care (01) ==
LOC: DI 09:34
PROVIDERS: ATTEND Orthopaedic Surgery
DX: S83.411A Sprain of medial collateral ligament of right knee, initial encounter (principal); M25.461 Effusion, right knee; M25.861 Other specified joint disorders, right knee